=== PATIENT | female | born 1975 | race Caucasian/White ===

== ENCOUNTER 2023-04-03 17:30 | Emergency (ER) | payer MEDICAID ==
[~2023-04-03] VITALS: Ht 162.6 cm; Wt 68.0 kg
[2023-04-03 17:35] VITALS: BP_SYST 149; PULSE 107; RESP 18; TEMP 97.8; O2SAT 99
[2023-04-03] MEDS ORDERED: CEPH-548 PO (18:26)
[2023-04-03] MEDS ORDERED: IBUP-1970 PO (18:26)
[2023-04-03] MEDS ORDERED: ACET-2634 PO (18:26)
[2023-04-03] MEDS ORDERED: HYDR-3927 PO (18:26)
[2023-04-03] MEDS ORDERED: cephALEXin 500 MG CAPSULE PO ONE (18:30)
[2023-04-03 18:38] VITALS: RESP 18; TEMP 97.8; O2SAT 99
== END 2023-04-03 18:38 | disposition home or self-care (01) ==
LOC: SED 17:30
DX: L03.116 Cellulitis of left lower limb (principal); M25.572 Pain in left ankle and joints of left foot; Z88.2 Allergy status to sulfonamides; Z79.899 Other long term (current) drug therapy
CPT/HCPCS: 99283

== ENCOUNTER 2023-04-27 06:30 | Inpatient (IN) | payer MEDICAID ==
[~2023-04-27] VITALS: Ht 162.6 cm; Wt 78.9 kg
[~2023-04-27 06:30] MED LIST: ACET-2634 PO; CEPH-548 PO; HYDR-3927 PO; IBUP-1970 PO
[2023-04-27 06:48] VITALS: BP_SYST 156; PULSE 103; RESP 20; TEMP 98.8; O2SAT 99
[2023-04-27 07:51] LABS: BILIRUBIN,URINE NEGATIVE (NEGATIVE); BLOOD, URINE NEGATIVE (NEGATIVE); CLARITY/URINE CLEAR (CLEAR); COLOR,URINE YELLOW (YELLOW); GLUCOSE,URINE NEGATIVE (NEGATIVE); KETONES,URINE NEGATIVE (NEGATIVE); LEUKOCYTE ESTERASE ,URINE NEGATIVE (NEGATIVE); NITRITE, URINE NEGATIVE (NEGATIVE); PH,URINE 7.5 (5.0-8.0); PROTEIN URINE NEGATIVE (NEGATIVE); UROBILINOGEN,URINE 0.2 (0.2-1.0)
[2023-04-27] MEDS: ONDANSETRON HCL 4 MG/2 ML VIAL IVP ONE (08:00)
[2023-04-27] MEDS: MORPHINE 4 MG INJ. 4 MG/ML VIAL IM ONE (08:03)
[2023-04-27 08:40] LABS: BASOPHILS % (AUTO) 0.5 % (0.0-2.0); EOSINOPHILS # (AUTO) 0.1 K/uL (0.0-0.4); EOSINOPHILS % (AUTO) 1.7 % (0.0-4.0); HEMATOCRIT 32.5 % (36-48); HEMOGLOBIN 10.5 g/dL (12.0-16.0); LYMPHOCYTES # (AUTO) 1.2 K/uL (1.0-5.5); LYMPHOCYTES % (AUTO) 17.8 % (20.5-51.5); MEAN CORPUSCULAR HEMOGLOBIN 27 pg (27-31); MEAN CORPUSCULAR HGB CONC 32 % (32-36); MEAN CORPUSCULAR VOLUME 84 fL (79.0-98.0); MONOCYTES # (AUTO) 0.6 K/uL (0.0-1.0); MONOCYTES % (AUTO) 8.7 % (1.7-9.3); NEUTROPHILS # (AUTO) 4.7 K/uL (1.8-7.7); NEUTROPHILS % (AUTO) 71.3 % (40.0-70.0); PLATELET COUNT (AUTO) 292 K/uL (130-430); RED BLOOD CELL COUNT(AUTO) 3.85 MIL/uL (4.2-6.2); RED CELL DISTRIBUTION WIDTH 14.8 % (9.0-15.0); WHITE BLOOD COUNT (AUTO) 6.6 K/uL (4.8-10.8)
[2023-04-27] MEDS: NACL 0.9% 1,000 ML IV ONE (08:49)
[2023-04-27 08:57] LABS: CALCIUM 8.8 mg/dL (8.4-11.0); CREATININE 0.83 mg/dL (0.55-1.30); POTASSIUM 3.7 mmol/L (3.5-5.1)
[2023-04-27 09:03] LABS: ALBUMIN 3.2 g/dL (3.4-4.8); BILIRUBIN,DIRECT 0.1 mg/dL (0.0-0.3); TOTAL BILIRUBIN 0.6 mg/dL (0.0-1.0); TOTAL PROTEIN, SERUM 7.3 g/dL (6.4-8.3)
[2023-04-27] MEDS ORDERED: HYDROcodone/ACETAMIN 10-325 MG TAB PO PRN (13:30)
[2023-04-27] MEDS ORDERED: NALOXONE HCL 0.4 MG/ML AMP (NARCAN) IVP PRN ×2 (13:30→17:30)
[2023-04-27] MEDS ORDERED: ACETAMINOPHEN 500 MG TABLET PO PRN (13:30)
[2023-04-27] MEDS: HYDROcodone/ACETAMIN 5-325 MG TAB (NORCO/ VICODIN) PO PRN (14:58)
[2023-04-27] MEDS: cefTRIAXone 1 GM in D5W 50 ML IV SCH (18:04)
[2023-04-27] MEDS: ENOXAPARIN SODIUM 40 MG/0.4 ML SYRINGE SUBCUT SCH (21:20)
[2023-04-28] MEDS ORDERED: HYDROmorphone 1 MG/ML INJ. CARTRIDGE ONE (01:22)
[2023-04-28] MEDS: HYDROmorphone 1 MG/ML INJ. CARTRIDGE IVP PRN (01:34)
[2023-04-28 01:51] VITALS: BP_SYST 123; PULSE 90; RESP 18; TEMP 97.8
[2023-04-28] MEDS: ONDANSETRON HCL 4 MG/2 ML VIAL IVP PRN (01:51)
[2023-04-28 05:44] LABS: BASOPHILS % (AUTO) 0.5 % (0.0-2.0); EOSINOPHILS # (AUTO) 0.1 K/uL (0.0-0.4); EOSINOPHILS % (AUTO) 1.1 % (0.0-4.0); HEMATOCRIT 32.8 % (36-48); HEMOGLOBIN 10.7 g/dL (12.0-16.0); LYMPHOCYTES % (AUTO) 10.7 % (20.5-51.5); MEAN CORPUSCULAR HEMOGLOBIN 28 pg (27-31); MEAN CORPUSCULAR HGB CONC 33 % (32-36); MEAN CORPUSCULAR VOLUME 85 fL (79.0-98.0); MONOCYTES # (AUTO) 0.7 K/uL (0.0-1.0); MONOCYTES % (AUTO) 7.5 % (1.7-9.3); NEUTROPHILS # (AUTO) 7.1 K/uL (1.8-7.7); NEUTROPHILS % (AUTO) 80.2 % (40.0-70.0); PLATELET COUNT (AUTO) 287 K/uL (130-430); RED BLOOD CELL COUNT(AUTO) 3.88 MIL/uL (4.2-6.2); WHITE BLOOD COUNT (AUTO) 8.9 K/uL (4.8-10.8)
[2023-04-28 06:06] LABS: ALBUMIN 2.9 g/dL (3.4-4.8); CALCIUM 8.7 mg/dL (8.4-11.0); CREATININE 0.94 mg/dL (0.55-1.30); POTASSIUM 4.4 mmol/L (3.5-5.1); TOTAL BILIRUBIN 0.4 mg/dL (0.0-1.0); TOTAL PROTEIN, SERUM 7.1 g/dL (6.4-8.3)
[2023-04-28 08:12] VITALS: BP_SYST 132; PULSE 100; RESP 18; TEMP 98.6; O2SAT 98
[2023-04-28 09:33] VITALS: O2SAT 98
[2023-04-28 15:30] VITALS: BP_SYST 128; PULSE 85; RESP 17; TEMP 98; O2SAT 98
[2023-04-28 21:00] VITALS: BP_SYST 130; PULSE 100; RESP 19; TEMP 97.1; O2SAT 98
[2023-04-29 02:30] VITALS: BP_SYST 139; PULSE 93; RESP 18; TEMP 98.5; O2SAT 98
[2023-04-29 08:25] LABS: BASOPHILS % (AUTO) 0.2 % (0.0-2.0); EOSINOPHILS # (AUTO) 0.1 K/uL (0.0-0.4); EOSINOPHILS % (AUTO) 0.9 % (0.0-4.0); LYMPHOCYTES # (AUTO) 1.3 K/uL (1.0-5.5); LYMPHOCYTES % (AUTO) 15.3 % (20.5-51.5); MEAN CORPUSCULAR HEMOGLOBIN 27 pg (27-31); MEAN CORPUSCULAR HGB CONC 33 % (32-36); MEAN CORPUSCULAR VOLUME 84 fL (79.0-98.0); MONOCYTES # (AUTO) 0.6 K/uL (0.0-1.0); MONOCYTES % (AUTO) 7.1 % (1.7-9.3); NEUTROPHILS # (AUTO) 6.7 K/uL (1.8-7.7); NEUTROPHILS % (AUTO) 76.5 % (40.0-70.0); PLATELET COUNT (AUTO) 291 K/uL (130-430); RED BLOOD CELL COUNT(AUTO) 4.02 MIL/uL (4.2-6.2); RED CELL DISTRIBUTION WIDTH 14.8 % (9.0-15.0); WHITE BLOOD COUNT (AUTO) 8.7 K/uL (4.8-10.8)
[2023-04-29 08:54] LABS: CALCIUM 9.1 mg/dL (8.4-11.0); CREATININE 0.8 mg/dL (0.55-1.30); POTASSIUM 4.1 mmol/L (3.5-5.1)
[2023-04-29 09:39] LABS: PROTHROMBIN TIME 9.9 SECS (9.5-12.5)
[2023-04-29 19:00] VITALS: BP_SYST 134; PULSE 65; RESP 18; TEMP 96.8; O2SAT 100
[2023-04-29] MEDS: ENOXAPARIN SODIUM 40 MG/0.4 ML SYRINGE SUBCUT SCH (20:08)
[2023-04-30] VITALS (8 sets, daily range): BP systolic 114–124; PULSE 82–89; RESP 16–20; TEMP 96.8–98.3; O2SAT 95–100
[2023-05-01] VITALS: BP_SYST 118; PULSE 82; RESP 18; TEMP 97.2; O2SAT 97
[2023-05-01 07:54] VITALS: O2SAT 98
[2023-05-01 07:59] VITALS: BP_SYST 126; PULSE 75; RESP 16; TEMP 98.2; O2SAT 98
[2023-05-01 11:16] VITALS: BP_SYST 107; PULSE 86; RESP 16; TEMP 97.7; O2SAT 98
[2023-05-01 16:48] VITALS: BP_SYST 131; PULSE 88; RESP 17; TEMP 98; O2SAT 98
== END 2023-05-01 17:15 | disposition left against medical advice (07) | DRG 530 ==
LOC: SED 06:30 → SMU 12:15
PROVIDERS: ADMIT Internal Medicine; ATTEND Internal Medicine
DX: C79.60 Secondary malignant neoplasm of unspecified ovary (principal); E44.1 Mild protein-calorie malnutrition; N13.30 Unspecified hydronephrosis; D63.8 Anemia in other chronic diseases classified elsewhere; R60.0 Localized edema; Z88.2 Allergy status to sulfonamides; Z79.899 Other long term (current) drug therapy; Z79.891 Long term (current) use of opiate analgesic; Z68.29 Body mass index [BMI] 29.0-29.9, adult; Z85.41 Personal history of malignant neoplasm of cervix uteri
CPT/HCPCS: 36415; 76700; 76770; 80048; 80053; 80076; 81001; 81003; 83690; 85025; 85610; 85730; 87081; 93970; 99285; J0696; J1170; J1650; J2270; J2405; J7060

== ENCOUNTER 2023-09-03 13:23 | Emergency (ER) | payer MEDICAID ==
[~2023-09-03] VITALS: Ht 162.6 cm; Wt 74.8 kg
[~2023-09-03 13:23] MED LIST changes: -CEPH-548 PO
[2023-09-03 13:56] VITALS: BP_SYST 139; PULSE 88; RESP 16; TEMP 96.8; O2SAT 98
[2023-09-03] MEDS: ONDANSETRON 4 MG ODT TAB PO ONE (14:36)
[2023-09-03] MEDS: METOCLOPRAMIDE HCL 10 MG/2 ML VIAL IM ONE (14:36)
[2023-09-03] MEDS: KETOROLAC TROMETHAMINE 30 MG VIAL IM ONE (14:36)
[2023-09-03 16:14] LABS: CLARITY/URINE SLIGHTLY CLOUDY (CLEAR); COLOR,URINE YELLOW (YELLOW); PH,URINE 5.5 (5.0-8.0); PROTEIN URINE 1+ (NEGATIVE)
[2023-09-03 16:15] LABS: BACTERIA,URINE FEW /HPF (None Seen); BILIRUBIN,URINE NEGATIVE (NEGATIVE); BLOOD, URINE 2+ (NEGATIVE); GLUCOSE,URINE NEGATIVE (NEGATIVE); KETONES,URINE NEGATIVE (NEGATIVE); LEUKOCYTE ESTERASE ,URINE 3+ (NEGATIVE); NITRITE, URINE NEGATIVE (NEGATIVE); RBC,URINE 0-3 /HPF (0-3); UROBILINOGEN,URINE 0.2 (0.2-1.0); WBC,URINE 80-100 /HPF (0-3)
[2023-09-03 16:16] LABS: MUCUS,URINE None Seen /LPF (None Seen)
[2023-09-03] MEDS ORDERED: ONDA-8 TL (16:32)
[2023-09-03] MEDS ORDERED: AUG875 PO (16:32)
[2023-09-03] MEDS ORDERED: cefTRIAXone 1 GM VIAL ONE (17:12)
[2023-09-03] MEDS: cefTRIAXone 1 GM VIAL IM ONE (17:24)
[2023-09-03 17:25] VITALS: BP_SYST 139; PULSE 88; RESP 16; TEMP 96.8; O2SAT 98
== END 2023-09-03 17:25 | disposition home or self-care (01) ==
LOC: SED 13:23
DX: T83.032A Leakage of nephrostomy catheter, initial encounter (principal); N39.0 Urinary tract infection, site not specified; R11.2 Nausea with vomiting, unspecified; Z85.41 Personal history of malignant neoplasm of cervix uteri; Z88.2 Allergy status to sulfonamides; Z91.018 Allergy to other foods; Z79.899 Other long term (current) drug therapy; Y83.8 Other surgical procedures as the cause of abnormal reaction of the patient, or of later complication, without mention of misadventure at the time of the procedure; Y92.89 Other specified places as the place of occurrence of the external cause
CPT/HCPCS: 99284; 81001; 87086; 87186; 96372; Q0162; J0696; J1885; J2765; 81000; 81015

== ENCOUNTER 2023-09-12 23:22 | Inpatient (IN) | payer MEDICAID ==
[~2023-09-12] VITALS: Ht 165.1 cm; Wt 77.1 kg
[~2023-09-12 23:22] MED LIST changes: +AUG875 PO; +ONDA-8 TL
[2023-09-12 23:41] VITALS: BP_SYST 163; PULSE 104; RESP 18; TEMP 99; O2SAT 95
[2023-09-13 00:01] LABS: BILIRUBIN,URINE 1+ (NEGATIVE); BLOOD, URINE 3+ (NEGATIVE); COLOR,URINE YELLOW (YELLOW); GLUCOSE,URINE NEGATIVE (NEGATIVE); KETONES,URINE NEGATIVE (NEGATIVE); LEUKOCYTE ESTERASE ,URINE 2+ (NEGATIVE); NITRITE, URINE POSITIVE (NEGATIVE); PROTEIN URINE 3+ (NEGATIVE); UROBILINOGEN,URINE 0.2 (0.2-1.0)
[2023-09-13 00:30] LABS: BASOPHILS % (AUTO) 0.3 % (0.0-2.0); EOSINOPHILS # (AUTO) 0.1 K/uL (0.0-0.4); EOSINOPHILS % (AUTO) 1.4 % (0.0-4.0); HEMOGLOBIN 11.9 g/dL (12.0-16.0); LYMPHOCYTES # (AUTO) 1.9 K/uL (1.0-5.5); MEAN CORPUSCULAR HEMOGLOBIN 29 pg (27-31); MEAN CORPUSCULAR HGB CONC 35 % (32-36); MEAN CORPUSCULAR VOLUME 83 fL (79.0-98.0); MONOCYTES # (AUTO) 0.6 K/uL (0.0-1.0); MONOCYTES % (AUTO) 6.4 % (1.7-9.3); NEUTROPHILS # (AUTO) 6.5 K/uL (1.8-7.7); NEUTROPHILS % (AUTO) 70.9 % (40.0-70.0); PLATELET COUNT (AUTO) 261 K/uL (130-430); RED BLOOD CELL COUNT(AUTO) 4.11 MIL/uL (4.2-6.2); RED CELL DISTRIBUTION WIDTH 16.8 % (9.0-15.0); WHITE BLOOD COUNT (AUTO) 9.2 K/uL (4.8-10.8)
[2023-09-13] MEDS: NACL 0.9% 1,000 ML IV ONE (00:31)
[2023-09-13] MEDS: MORPHINE 4 MG INJ. 4 MG/ML VIAL IVP ONE ×2 (00:33→04:12)
[2023-09-13] MEDS: ONDANSETRON HCL 4 MG/2 ML VIAL IVP ONE (00:34)
[2023-09-13 00:42] LABS: CLARITY/URINE CLOUDY (CLEAR)
[2023-09-13 00:44] LABS: RBC,URINE 50-80 /HPF (0-3)
[2023-09-13 00:45] LABS: BACTERIA,URINE MANY /HPF (None Seen); WBC,URINE 80-100 /HPF (0-3)
[2023-09-13 00:53] LABS: ALBUMIN 3.9 g/dL (3.4-4.8); BILIRUBIN,DIRECT 0.2 mg/dL (0.0-0.3); CALCIUM 9.1 mg/dL (8.4-11.0); CREATININE 1.16 mg/dL (0.55-1.30); POTASSIUM 3.7 mmol/L (3.5-5.1); TOTAL BILIRUBIN 0.9 mg/dL (0.0-1.0); TOTAL PROTEIN, SERUM 7.8 g/dL (6.4-8.3)
[2023-09-13] MEDS: cefTRIAXone 1 GM in D5W 50 ML IV ONE (01:24)
[2023-09-13] MEDS: MORPHINE 2 MG/ML INJ. SYRINGE IVP PRN ×2 (10:27→14:56)
[2023-09-13 11:35] VITALS: BP_SYST 124; PULSE 97; RESP 20; TEMP 97.7; O2SAT 95
[2023-09-13] MEDS: ONDANSETRON HCL 4 MG/2 ML VIAL IVP PRN (11:57)
[2023-09-13] MEDS ORDERED: ACETAMINOPHEN 325 MG TABLET PO PRN (15:00)
[2023-09-13 16:26] VITALS: BP_SYST 106; PULSE 79; RESP 16; TEMP 97.7; O2SAT 97
[2023-09-13] MEDS: 0.45% NACL 1,000 ML IV SCH (16:48)
[2023-09-13] MEDS: OXYCODONE/ACETAMINOPHEN 5-325 TABLET PO PRN (17:38)
[2023-09-13 20:00] VITALS: BP_SYST 122; PULSE 75; RESP 18; TEMP 97.6; O2SAT 98
[2023-09-13] MEDS: CEFTRIAXONE SOD 1 GM/ D5W 50 ML IV SCH (21:24)
[2023-09-13] MEDS: HEPARIN SODIUM,PORCINE 5,000 UNITS/ML VIAL SUBCUT SCH (21:31)
[2023-09-13] MEDS: ZOLPIDEM TARTRATE 5 MG TABLET PO PRN (21:44)
[2023-09-14] MEDS ORDERED: cefTRIAXone 1 GM IVPB PREMIX 50 ML IV SCH (01:00)
[2023-09-14 01:21] VITALS: BP_SYST 112; PULSE 87; RESP 18; TEMP 98.2; O2SAT 98
[2023-09-14 08:00] VITALS: O2SAT 100
[2023-09-14 08:07] VITALS: BP_SYST 143; PULSE 78; RESP 16; TEMP 97.3; O2SAT 100
[2023-09-14 08:34] LABS: BASOPHILS % (AUTO) 0.5 % (0.0-2.0); EOSINOPHILS # (AUTO) 0.1 K/uL (0.0-0.4); EOSINOPHILS % (AUTO) 3.4 % (0.0-4.0); HEMATOCRIT 35.6 % (36-48); HEMOGLOBIN 11.5 g/dL (12.0-16.0); LYMPHOCYTES # (AUTO) 1.6 K/uL (1.0-5.5); LYMPHOCYTES % (AUTO) 39.7 % (20.5-51.5); MEAN CORPUSCULAR HEMOGLOBIN 27 pg (27-31); MEAN CORPUSCULAR HGB CONC 32 % (32-36); MEAN CORPUSCULAR VOLUME 84 fL (79.0-98.0); MONOCYTES # (AUTO) 0.3 K/uL (0.0-1.0); MONOCYTES % (AUTO) 6.6 % (1.7-9.3); NEUTROPHILS % (AUTO) 49.8 % (40.0-70.0); PLATELET COUNT (AUTO) 248 K/uL (130-430); RED BLOOD CELL COUNT(AUTO) 4.27 MIL/uL (4.2-6.2); RED CELL DISTRIBUTION WIDTH 16.5 % (9.0-15.0)
[2023-09-14 08:49] LABS: CALCIUM 8.8 mg/dL (8.4-11.0); CREATININE 0.92 mg/dL (0.55-1.30); POTASSIUM 4.7 mmol/L (3.5-5.1)
[2023-09-14] MEDS ORDERED: hydrALAZINE HCL 25 MG TABLET PO PRN (10:45)
[2023-09-14 12:47] VITALS: BP_SYST 150; PULSE 100; RESP 18; TEMP 98.3; O2SAT 98
[2023-09-14 17:07] VITALS: BP_SYST 128; PULSE 85; RESP 16; TEMP 98.4; O2SAT 98
[2023-09-14 17:19] LABS: PROTHROMBIN TIME 9.9 SECS (9.5-12.5)
[2023-09-14 20:00] VITALS: BP_SYST 137; PULSE 92; RESP 18; TEMP 97.7; O2SAT 97
[2023-09-15 00:17] VITALS: BP_SYST 136; PULSE 87; RESP 16; TEMP 98.2; O2SAT 97
[2023-09-15 05:11] LABS: BASOPHILS % (AUTO) 0.7 % (0.0-2.0); EOSINOPHILS # (AUTO) 0.1 K/uL (0.0-0.4); EOSINOPHILS % (AUTO) 1.9 % (0.0-4.0); HEMATOCRIT 34.3 % (36-48); HEMOGLOBIN 11.3 g/dL (12.0-16.0); LYMPHOCYTES # (AUTO) 1.3 K/uL (1.0-5.5); LYMPHOCYTES % (AUTO) 31.9 % (20.5-51.5); MEAN CORPUSCULAR HEMOGLOBIN 27 pg (27-31); MEAN CORPUSCULAR HGB CONC 33 % (32-36); MEAN CORPUSCULAR VOLUME 83 fL (79.0-98.0); MONOCYTES # (AUTO) 0.3 K/uL (0.0-1.0); MONOCYTES % (AUTO) 6.8 % (1.7-9.3); NEUTROPHILS # (AUTO) 2.4 K/uL (1.8-7.7); NEUTROPHILS % (AUTO) 58.7 % (40.0-70.0); PLATELET COUNT (AUTO) 252 K/uL (130-430); RED BLOOD CELL COUNT(AUTO) 4.16 MIL/uL (4.2-6.2); RED CELL DISTRIBUTION WIDTH 16.7 % (9.0-15.0); WHITE BLOOD COUNT (AUTO) 4.2 K/uL (4.8-10.8)
[2023-09-15 05:19] LABS: CALCIUM 8.8 mg/dL (8.4-11.0); CREATININE 0.83 mg/dL (0.55-1.30); POTASSIUM 3.8 mmol/L (3.5-5.1)
[2023-09-15 08:00] VITALS: O2SAT 99
[2023-09-15 10:41] VITALS: BP_SYST 127; PULSE 76; RESP 16; TEMP 97.8; O2SAT 99
[2023-09-15] MEDS: OXYCODONE/ACETAMINOPHEN *10*mg/325 mg TABLET PO PRN (15:37)
[2023-09-15 16:02] VITALS: BP_SYST 134; PULSE 104; RESP 20; TEMP 96.8; O2SAT 96
[2023-09-15 19:00] VITALS: O2SAT 98
[2023-09-15 20:00] VITALS: BP_SYST 116; PULSE 75; RESP 18; TEMP 97.9; O2SAT 98
[2023-09-15] MEDS: HEPARIN SODIUM,PORCINE 5,000 UNITS/ML VIAL SUBCUT SCH (20:47)
[2023-09-16] VITALS: BP_SYST 96; PULSE 96; RESP 16; TEMP 98.1; O2SAT 97
[2023-09-16 06:30] LABS: BASOPHILS % (AUTO) 0.6 % (0.0-2.0); EOSINOPHILS # (AUTO) 0.2 K/uL (0.0-0.4); EOSINOPHILS % (AUTO) 3.3 % (0.0-4.0); HEMATOCRIT 36.8 % (36-48); HEMOGLOBIN 12.1 g/dL (12.0-16.0); LYMPHOCYTES # (AUTO) 1.5 K/uL (1.0-5.5); LYMPHOCYTES % (AUTO) 32.3 % (20.5-51.5); MEAN CORPUSCULAR HEMOGLOBIN 28 pg (27-31); MEAN CORPUSCULAR HGB CONC 33 % (32-36); MEAN CORPUSCULAR VOLUME 83 fL (79.0-98.0); MONOCYTES # (AUTO) 0.3 K/uL (0.0-1.0); MONOCYTES % (AUTO) 6.3 % (1.7-9.3); NEUTROPHILS # (AUTO) 2.7 K/uL (1.8-7.7); NEUTROPHILS % (AUTO) 57.5 % (40.0-70.0); PLATELET COUNT (AUTO) 260 K/uL (130-430); RED BLOOD CELL COUNT(AUTO) 4.42 MIL/uL (4.2-6.2); RED CELL DISTRIBUTION WIDTH 16.6 % (9.0-15.0); WHITE BLOOD COUNT (AUTO) 4.6 K/uL (4.8-10.8)
[2023-09-16 07:03] LABS: CALCIUM 8.9 mg/dL (8.4-11.0); CREATININE 0.81 mg/dL (0.55-1.30); POTASSIUM 4.3 mmol/L (3.5-5.1)
[2023-09-16 08:00] VITALS: BP_SYST 160; PULSE 72; RESP 18; TEMP 97.7; O2SAT 100; O2SAT 99
[2023-09-16 12:10] VITALS: BP_SYST 150; PULSE 83; RESP 17; TEMP 97.9; O2SAT 97
[2023-09-16] MEDS ORDERED: LEVO750T64 PO (12:39)
== END 2023-09-16 12:45 | disposition left against medical advice (07) | DRG 465 ==
LOC: SED 23:22 → SMU 09-13 04:40
PROVIDERS: ADMIT Student in an Organized Health Care Education/Training Program; ATTEND Student in an Organized Health Care Education/Training Program
DX: N13.8 Other obstructive and reflux uropathy (principal); N17.9 Acute kidney failure, unspecified; N13.6 Pyonephrosis; Z53.29 Procedure and treatment not carried out because of patient's decision for other reasons; Z79.899 Other long term (current) drug therapy; Z88.2 Allergy status to sulfonamides; Z91.018 Allergy to other foods; Z90.710 Acquired absence of both cervix and uterus; Z85.41 Personal history of malignant neoplasm of cervix uteri
CPT/HCPCS: 36415; 71045; 76770; 80048; 80076; 81000; 81001; 81015; 83605; 83690; 84702; 85025; 85610; 85730; 86886; 86900; 86901; 87040; 87086; 87186; 99285; J0696; J1644; J1956; J2270; J2405; J7060; Q9967

== ENCOUNTER 2023-10-17 13:44 | Emergency (ER) | payer MEDICAID ==
[~2023-10-17] VITALS: Ht 165.1 cm; Wt 77.1 kg
[~2023-10-17 13:44] MED LIST changes: -AUG875 PO; +LEVO750T64 PO
[2023-10-17 13:57] VITALS: BP_SYST 131; PULSE 119; RESP 22; TEMP 98.3; O2SAT 96
[2023-10-17] MEDS: MORPHINE 4 MG INJ. 4 MG/ML VIAL IM ONE (14:42)
[2023-10-17] MEDS: ONDANSETRON HCL 4 MG/2 ML VIAL IVP ONE (14:46)
[2023-10-17] MEDS: MORPHINE 4 MG INJ. 4 MG/ML VIAL IVP ONE (14:46)
[2023-10-17 15:10] LABS: BASOPHILS % (AUTO) 0.3 % (0.0-2.0); EOSINOPHILS # (AUTO) 0.1 K/uL (0.0-0.4); EOSINOPHILS % (AUTO) 0.9 % (0.0-4.0); HEMATOCRIT 39.9 % (36-48); HEMOGLOBIN 12.9 g/dL (12.0-16.0); LYMPHOCYTES # (AUTO) 1.9 K/uL (1.0-5.5); LYMPHOCYTES % (AUTO) 28.4 % (20.5-51.5); MEAN CORPUSCULAR HEMOGLOBIN 27 pg (27-31); MEAN CORPUSCULAR HGB CONC 32 % (32-36); MEAN CORPUSCULAR VOLUME 85 fL (79.0-98.0); MONOCYTES # (AUTO) 0.4 K/uL (0.0-1.0); NEUTROPHILS # (AUTO) 4.4 K/uL (1.8-7.7); NEUTROPHILS % (AUTO) 64.4 % (40.0-70.0); PLATELET COUNT (AUTO) 301 K/uL (130-430); RED BLOOD CELL COUNT(AUTO) 4.69 MIL/uL (4.2-6.2); RED CELL DISTRIBUTION WIDTH 16.2 % (9.0-15.0); WHITE BLOOD COUNT (AUTO) 6.8 K/uL (4.8-10.8)
[2023-10-17 15:15] LABS: ALBUMIN 4.1 g/dL (3.4-4.8); BILIRUBIN,DIRECT 0.2 mg/dL (0.0-0.3); CALCIUM 9.1 mg/dL (8.4-11.0); CREATININE 1.05 mg/dL (0.55-1.30); POTASSIUM 3.6 mmol/L (3.5-5.1); TOTAL BILIRUBIN 1.1 mg/dL (0.0-1.0); TOTAL PROTEIN, SERUM 8.2 g/dL (6.4-8.3)
[2023-10-17 16:09] LABS: BILIRUBIN,URINE 1+ (NEGATIVE); BLOOD, URINE 3+ (NEGATIVE); CLARITY/URINE TURBID (CLEAR); GLUCOSE,URINE NEGATIVE (NEGATIVE); KETONES,URINE NEGATIVE (NEGATIVE); LEUKOCYTE ESTERASE ,URINE 2+ (NEGATIVE); NITRITE, URINE POSITIVE (NEGATIVE); PROTEIN URINE 3+ (NEGATIVE)
[2023-10-17 16:30] LABS: COLOR,URINE AMBER (YELLOW)
[2023-10-17 16:31] LABS: RBC,URINE >100 /HPF (0-3); WBC,URINE >100 /HPF (0-3)
[2023-10-17 16:32] LABS: BACTERIA,URINE MODERATE /HPF (None Seen); MUCUS,URINE None Seen /LPF (None Seen)
[2023-10-17] MEDS ORDERED: cefTRIAXone 1 GM VIAL ONE (16:54)
[2023-10-17] MEDS: cefTRIAXone 1 GM in D5W 50 ML IV ONE (16:56)
[2023-10-17] MEDS ORDERED: CEFD300C3 PO (17:41)
[2023-10-17 17:50] VITALS: BP_SYST 131; PULSE 119; RESP 22; TEMP 98.3; O2SAT 96
== END 2023-10-17 17:50 | disposition home or self-care (01) ==
LOC: SED 13:44
DX: N39.0 Urinary tract infection, site not specified (principal); I10 Essential (primary) hypertension; Z85.41 Personal history of malignant neoplasm of cervix uteri; Z88.2 Allergy status to sulfonamides; Z91.018 Allergy to other foods; Z79.899 Other long term (current) drug therapy; Z79.2 Long term (current) use of antibiotics
CPT/HCPCS: 99284; 96365; 96375; 80076; 80048; 81001; 85025; 87086; 36415; 74018; J0696; J2405; J2270; 81000; 81015; 87186